=== PATIENT | female | born 1975 | race Caucasian/White ===

== ENCOUNTER 2020-09-07 06:34 | Day surgery (SDC) | payer MEDICAID, SELFPAY ==
[~2020-09-07] VITALS: Ht 170.2 cm; Wt 102.1 kg
[2020-09-07 07:01] LABS: HCG,QUAL RESULT NEGATIVE (NEGATIVE)
[2020-09-07] MEDS ORDERED: fentaNYL CITRATE/PF 100 MCG/2 ML AMP ONE (07:16)
[2020-09-07] MEDS ORDERED: SIMETHICONE 40 MG/0.6 ML ML ONE (07:16)
[2020-09-07] MEDS: MIDAZOLAM HCL 5 MG/5 ML VIAL ONE ×4 (08:16→08:23)
[2020-09-07] MEDS: MEPERIDINE 100 MG INJ. 100 MG/ML VIAL ONE ×2 (08:17→08:35)
[2020-09-07 09:55] VITALS: BP_SYST 105
== END 2020-09-07 10:00 | disposition home or self-care (01) ==
LOC: SDS 06:34 → SMU 06:34 → SDS 10:00
PROVIDERS: ATTEND Internal Medicine Gastroenterology
DX: K62.5 Hemorrhage of anus and rectum (principal); D12.2 Benign neoplasm of ascending colon; D12.3 Benign neoplasm of transverse colon; K57.30 Diverticulosis of large intestine without perforation or abscess without bleeding; K29.50 Unspecified chronic gastritis without bleeding; K44.9 Diaphragmatic hernia without obstruction or gangrene; K74.60 Unspecified cirrhosis of liver; I85.10 Secondary esophageal varices without bleeding; K64.8 Other hemorrhoids; Z20.828 Contact with and (suspected) exposure to other viral communicable diseases
CPT/HCPCS: 43239; 45380; 45385; 82962; 84703; 88305; 88312; 88313; 99152; 99153; G0378; J2175; J2250; J7030; U0003; J3010

== ENCOUNTER 2021-11-10 05:30 | Day surgery (SDC) | payer MEDICAID ==
[~2021-11-10] VITALS: Ht 170.2 cm; Wt 102.1 kg
[2021-11-10 05:51] LABS: HCG,QUAL RESULT NEGATIVE (NEGATIVE)
[2021-11-10] MEDS ORDERED: MEPERIDINE 100 MG INJ. 100 MG/ML VIAL ONE (06:48)
[2021-11-10] MEDS ORDERED: SIMETHICONE 40 MG/0.6 ML ML ONE (06:48)
[2021-11-10] MEDS ORDERED: MIDAZOLAM HCL 5 MG/5 ML VIAL ONE (06:49)
[2021-11-10 12:39] VITALS: BP_SYST 125
== END 2021-11-10 08:40 | disposition home or self-care (01) ==
LOC: SMU 05:30 → SDS 05:30
PROVIDERS: ATTEND Internal Medicine Gastroenterology
DX: K74.60 Unspecified cirrhosis of liver (principal); I85.10 Secondary esophageal varices without bleeding; K29.50 Unspecified chronic gastritis without bleeding; D64.9 Anemia, unspecified; K75.81 Nonalcoholic steatohepatitis (NASH); E11.9 Type 2 diabetes mellitus without complications; Z79.899 Other long term (current) drug therapy; Z20.822 Contact with and (suspected) exposure to COVID-19
CPT/HCPCS: 36415 ×2; 43239; 43244; 82962; 84703; 87081; 87426; 88305; 88312; 88313; 99152; G0378; J2175; J2250; U0003

== ENCOUNTER 2022-05-21 17:58 | Emergency (ER) | payer MEDICAID ==
[~2022-05-21] VITALS: Ht 167.6 cm; Wt 102.1 kg
[2022-05-21 18:12] VITALS: BP_SYST 110
--- NOTE | 2022-05-21 18:15 | NUR ---
Patient to ER bed 05 to gown for evaluation. Side rails up. Report given to NOELLE JUDD.
--- NOTE | 2022-05-21 18:16 | NUR ---
PATIENT TO ER FROM HOME C/O LEFT FINGERS NUMBNESS SINCE THIS AM AND LEFT ARM PAIN, LEFT HAND PAIN, EDP AT BEDSIDE FOR INITIAL ASSESSMENT AND ORDER.
--- NOTE | 2022-05-21 18:16 | NUR ---
ER Dr. GO at bedside examining patient.
[2022-05-21 18:50] LABS: BASOPHILS % (AUTO) 0.2 % (0.0-2.0); EOSINOPHILS # (AUTO) 0.1 K/uL (0.0-0.4); EOSINOPHILS % (AUTO) 2.1 % (0.0-4.0); HEMATOCRIT 35.3 % (36-48); HEMOGLOBIN 12.4 g/dL (12.0-16.0); LYMPHOCYTES % (AUTO) 35.8 % (20.5-51.5); MEAN CORPUSCULAR HEMOGLOBIN 31 pg (27-31); MEAN CORPUSCULAR HGB CONC 35 % (32-36); MEAN CORPUSCULAR VOLUME 88 fL (79.0-98.0); MONOCYTES # (AUTO) 0.3 K/uL (0.0-1.0); NEUTROPHILS # (AUTO) 1.5 K/uL (1.8-7.7); NEUTROPHILS % (AUTO) 50.9 % (40.0-70.0); PLATELET COUNT (AUTO) 55 K/uL (130-430); RED BLOOD CELL COUNT(AUTO) 4.01 MIL/uL (4.2-6.2); RED CELL DISTRIBUTION WIDTH 13.2 % (9.0-15.0); WHITE BLOOD COUNT (AUTO) 2.9 K/uL (4.8-10.8)
[2022-05-21 19:03] LABS: ANION GAP 8 (5-15); CALCIUM 8.8 mg/dL (8.4-11.0); CHLORIDE 103 mmol/L (98-107); CREATININE 0.78 mg/dL (0.55-1.30); GLUCOSE 353 mg/dL (70-99); UREA NITROGEN, BLOOD 13 mg/dL (8-21)
[2022-05-21 19:12] LABS: ALANINE AMINOTRANSFERASE 55 U/L (12-78); ALBUMIN 2.9 g/dL (3.4-4.8); ASPARTATE AMINOTRANSFERASE 45 U/L (10-37); TOTAL BILIRUBIN 0.9 mg/dL (0.0-1.0)
[2022-05-21 19:14] LABS: C-REACTIVE PROTEIN QUANT < 0.2 mg/dL (0-0.5); GFR AFRICAN AMERICAN 101 mL/min (>90)
--- NOTE | 2022-05-21 19:30 | NUR ---
Assumed pt care. Pt sitting up in bed with c/o left shoulder pain 4/10, AROM, no neurovascular deficits to LUE. NAD and no needs verbalized at this time.
[2022-05-21 19:51] LABS: ERYTHROCYTE SEDIMENTATION RATE 34 MM/HR (0-20)
[2022-05-21] MEDS ORDERED: IBUP-1969 PO (20:14)
[2022-05-21] MEDS ORDERED: HYDR-3921 PO (20:14)
[2022-05-21 21:00] VITALS: BP_SYST 122
--- NOTE | 2022-05-21 21:00 | NUR ---
Patient given written and verbal discharge instructions and verbalizes understanding. ER MD discussed with patient the results and treatment provided. Patient in stable condition. ID arm band removed. IV catheter removed intact and dressing applied, no active bleeding. Rx of [place] and Motrin given. Patient educated on pain management and to follow up with PMD. Pain Scale 3/10. Opportunity for questions provided and answered. Medication side effect fact sheet provided.
== END 2022-05-21 21:00 | disposition home or self-care (01) ==
LOC: SED 17:58
DX: E11.40 Type 2 diabetes mellitus with diabetic neuropathy, unspecified (principal); Z79.899 Other long term (current) drug therapy
CPT/HCPCS: 36415; 70450-TC; 71045; 76376; 80053; 84484; 85025; 85651-TC; 86140; 93005; 99285